=== PATIENT | female | born 1980 | race African-American/Black ===

== ENCOUNTER 2019-04-12 15:26 | Outpatient (CLI) | payer OTHER | END 2019-04-12 22:31 | disposition home or self-care (01) | LOC: MAMMO 15:26 | DX: Z12.31 Encounter for screening mammogram for malignant neoplasm of breast (principal) ==

== ENCOUNTER 2020-08-21 15:56 | Outpatient (CLI) | payer OTHER | END 2020-08-21 20:34 | disposition home or self-care (01) | LOC: INF 15:56 | PROVIDERS: ATTEND Internal Medicine | DX: Z23 Encounter for immunization (principal) | CPT/HCPCS: 96372 ==

== ENCOUNTER 2020-09-12 13:50 | Outpatient (CLI) | payer OTHER | END 2020-09-12 20:40 | disposition home or self-care (01) | LOC: INF 13:50 | PROVIDERS: ATTEND Internal Medicine | DX: Z23 Encounter for immunization (principal) | CPT/HCPCS: 96372 ==